=== PATIENT | female | born 1975 | race Caucasian/White ===

== ENCOUNTER 2017-01-20 05:11 | Day surgery (SDC) | payer BC ==
[2017-01-15 14:12] VITALS: BMI 22.1
[2017-01-20] MEDS ORDERED: ACETAMINOPHEN 325 MG TABLET (FP) PO PRN (07:45)
[2017-01-20] MEDS ORDERED: IBUPROFEN 400 MG TABLET (FP) PO PRN (07:45)
--- NOTE | 2017-01-20 07:45 | HP ---
History & Physical Update - History History: No Change - Physical Physical: No Change - Assessment Assessment: No Change - Plan Plan: No Change
[2017-01-20] MEDS ORDERED: IBUPROFEN 800 MG/8 ML IJ IVPB ONE (08:56)
[2017-01-20] MEDS ORDERED: DESFLURANE GAS 240 ML BOTTLE IH ONE (08:56)
[2017-01-20] MEDS ORDERED: MIDAZOLAM HCL 2 MG/2 ML SINGLE DOSE VIAL ONE (09:03)
[2017-01-20] MEDS ORDERED: LIDOCAINE HCL/PF 2% SDV 5ML VIAL ONE (09:03)
[2017-01-20] MEDS ORDERED: SUCCINYLCHOLINE CHLORIDE 200 MG/10 ML VIAL ONE (09:03)
[2017-01-20] MEDS ORDERED: PROPOFOL 20 ML ONE (09:03)
[2017-01-20] MEDS ORDERED: DEXAMETHASONE SOD PHOSPHATE 4 MG/1 ML VIAL ONE (09:39)
[2017-01-20] MEDS ORDERED: BUPIVACAINE HCL/PF 0.5% (5MG/ML) 10 ML VIAL ONE (09:51)
[2017-01-20] MEDS ORDERED: BUPIVACAINE HCL/PF 0.5% (5MG/ML) 10 ML VIAL IJ ONE (10:10)
[2017-01-20] MEDS ORDERED: oxyCODONE HCL 5 MG TABLET PO PRN (10:23)
[2017-01-20] MEDS ORDERED: ONDANSETRON 4 MG/2 ML VIAL IVPUSH PRN (10:23)
[2017-01-20] MEDS ORDERED: LACTATED RINGERS SOLUTION 1,000 ML IV SCH (10:30)
[2017-01-20 11:44] VITALS: TEMP 97.7
--- NOTE | 2017-01-20 12:15 | OP ---
Operative Note - Note: Operative Date: 01/20/17 Pre-Operative Diagnosis: Abdominal pain. voluntary sterilization Operation: Laparoscopic enterolysis. laparoscopic bilateral salpingectomy Findings: Numerous intra abdominal adhesions Lyisis af adhesions perfom bilateral salpingectomy Post-Operative Diagnosis: Same as Pre-op Surgeon: Elen Buenrostro Ice Cream Scooper: Kierra Danielle Anesthesia: Spinal Estimated Blood Loss (mls): 10 Operative Report Dictated: Yes
[2017-01-20 14:59] VITALS: BP 99/58; PULSE 60
--- NOTE | 2017-01-22 16:47 | PATH ---
Surgical Pathology Report Patient Name: JESI FELIZ [facility]. Rec. #: [id number] /Age/Gender: 1975 (Age: 41) / F Account: [id number] Location: [facility] SURGICAL Taken: 01/20/2017 Received: 01/20/2017 Reported: 01/22/2017 Physicians: Elen Buenrostro M.D. Specimen(s) Received A: RIGHT FALLOPIAN TUBE B: LEFT FALLOPIAN TUBE Clinical History Salpingitis Final Diagnosis A. FALLOPIAN TUBE, RIGHT, SALPINGECTOMY: FALLOPIAN TUBE (INCLUDING LUMINAL PORTION) WITH PARATUBAL CYST. B. FALLOPIAN TUBE, LEFT, SALPINGECTOMY: FALLOPIAN TUBE (INCLUDING LUMINAL PORTION) WITH PARATUBAL CYST. Electronically Signed Jesi Montes De Oca M.D. Gross Description A. Received in formalin labeled "right fallopian tube," are 2 portions of fallopian tube measuring 0.9 and 2.0 cm in length. The longer portion displays attached fimbria. The outer surfaces are benito-pink and smooth. Sectioning reveals unremarkable lumen. Business Support Coordinator sections are submitted in 2 cassettes as follows: 1-fimbria; 2-cross sections of fallopian tube. B. Received in formalin labeled "left fallopian tube," are 2 portions of fallopian tube measuring 1.2 and 2.2 cm in length. The longer portion displays attached fimbria. The outer surfaces are jacobsen purple and smooth with a focal paratubal cyst attached. Sectioning reveals unremarkable lumen. Business Support Coordinator sections are submitted in 2 cassettes as follows: 1-fimbria; 2-cross sections of fallopian tube with paratubal cyst. 01/20/201701/20/2017
== END 2017-01-20 15:00 | disposition home or self-care (01) ==
LOC: JASU-SURG 05:11
PROVIDERS: ATTEND Obstetrics & Gynecology
PROC: 0U574ZZ Destruction of Bilateral Fallopian Tubes, Percutaneous Endoscopic Approach (ICD-10-PCS; principal; 2017-01-20 09:00)
DX: Z30.2 Encounter for sterilization (principal)
CPT/HCPCS: 84703; 88302-TC; 94760

== ENCOUNTER 2019-08-31 11:07 | Day surgery (SDC) | payer BC ==
[2019-08-25 16:54] VITALS: BMI 18.7
[2019-08-31 12:14] VITALS: TEMP 97.4
[2019-08-31 13:02] VITALS: BP 101/61; PULSE 60
== END 2019-08-31 13:19 | disposition home or self-care (01) ==
LOC: JASU-ENDO 11:07
PROVIDERS: ATTEND Internal Medicine Gastroenterology
PROC: 0DB68ZX Excision of Stomach, Via Natural or Artificial Opening Endoscopic, Diagnostic (ICD-10-PCS; principal; 2019-08-31 12:00)
DX: K29.50 Unspecified chronic gastritis without bleeding (principal); R63.4 Abnormal weight loss
CPT/HCPCS: 81025; 88305-TC; 88342-TC

== ENCOUNTER 2023-09-28 23:06 | Emergency (ER) | payer BC, OTHER ==
[2023-09-28 23:32] VITALS: BP 129/73; PULSE 67; RESP 18; TEMP 98.3; BMI 27.6
[2023-09-28 23:46] LABS: BASO % 0.6 % (0-2.0); EOS % 1.2 % (0-4.5); HEMATOCRIT 36.5 % (32.4-45.2); HEMOGLOBIN 12.6 GM/dL (10.7-15.3); LYMPH % 13.1 % (8-40); MCH 30.2 pg (25.7-33.7); MCHC 34.6 g/dl (32.0-36.0); MEAN CELL VOLUME 87.5 fl (80-96); MEAN PLT VOLUME 8.4 fl (7.5-11.1); MONO % 5.8 % (3.8-10.2); NEUT % 79.3 % (42.8-82.8); PLATELET COUNT 256 10^3/uL (134-434); RBC 4.17 M/mm3 (3.60-5.2); RDW 12.9 % (11.6-15.6); WHITE BLOOD COUNT 12.8 K/mm3 (4.0-10.0)
[2023-09-28] MEDS ORDERED: ACETAMINOPHEN INJECTION 100 ML IVPB ONE (23:47)
[2023-09-28 23:51] LABS: INR 1.09 (0.83-1.09); PROTHROMBIN TIME (PATIENT) 12.5 SEC (9.7-13.0)
[2023-09-28] MEDS: ACETAMINOPHEN 1000 MG/100 ML BAG IVPB ONE (23:51)
[2023-09-28 23:54] LABS: ACTIVATED PTT 29.2 SECONDS (25.2-36.5)
[2023-09-29 00:06] LABS: POTASSIUM 3.5 mmol/L (3.5-5.1)
[2023-09-29 00:08] LABS: ALBUMIN 3.5 g/dl (3.4-5.0); CALCIUM 8.9 mg/dL (8.5-10.1)
[2023-09-29 00:10] LABS: BLOOD UREA NITROGEN 16.4 mg/dL (7-18)
[2023-09-29 00:13] LABS: TOT PROT 7.1 g/dl (6.4-8.2)
[2023-09-29 00:15] LABS: BILIRUBIN,TOTAL 0.3 mg/dL (0.2-1)
[2023-09-29 01:19] LABS: EPI CELLS 20 /uL (0-25.1); HYALINE CASTS 0 /uL (0-3.1); URINE APPEARANCE CLEAR; URINE BACTERIA 24 /uL (0-1359); URINE BILIRUBIN NEGATIVE (NEGATIVE); URINE COLOR YELLOW; URINE GLUCOSE (UA) NEGATIVE (NEGATIVE); URINE KETONE NEGATIVE (NEGATIVE); URINE LEUK ESTERASE NEGATIVE (NEGATIVE); URINE NITRITE NEGATIVE (NEGATIVE); URINE PROTEIN NEGATIVE (NEGATIVE); URINE RBC 37 /uL (0-23.9); URINE WBC 10 /uL (0-25.8)
== END 2023-09-29 03:45 | disposition home or self-care (01) ==
LOC: JER 23:06
PROC: 3E033NZ Introduction of Analgesics, Hypnotics, Sedatives into Peripheral Vein, Percutaneous Approach (ICD-10-PCS; principal; 2023-09-28)
DX: R53.1 Weakness (principal); R07.2 Precordial pain; R20.0 Anesthesia of skin
CPT/HCPCS: 36415; 70450-TC; 71045-TC-FY; 80053; 80061; 81003; 82550; 82553; 82962; 83036; 84484; 84703; 85025; 85610; 85730; 86850; 86900; 86901; 93005; 93010; 99284-25; J0131

== ENCOUNTER 2024-04-20 04:33 | Day surgery (SDC) | payer OTHER ==
[2024-04-19 10:30] VITALS: BMI 28.1
[2024-04-20 09:48] VITALS: RESP 18; TEMP 98.3
[2024-04-20 10:55] VITALS: BP 113/67; PULSE 56
== END 2024-04-20 10:50 | disposition home or self-care (01) ==
LOC: JASU-ENDO 04:33
PROVIDERS: ATTEND Internal Medicine Gastroenterology
PROC: 0DBL8ZX Excision of Transverse Colon, Via Natural or Artificial Opening Endoscopic, Diagnostic (ICD-10-PCS; principal; 2024-04-20 08:45)
DX: Z12.11 Encounter for screening for malignant neoplasm of colon (principal); D12.3 Benign neoplasm of transverse colon; K64.8 Other hemorrhoids; K63.89 Other specified diseases of intestine
CPT/HCPCS: 81025; 88305-TC